=== PATIENT | male | born 1985 | race Caucasian/White ===

== ENCOUNTER 2021-10-27 09:36 | Emergency (ER) | payer SELFPAY ==
[2021-10-27] MEDS ORDERED: Lidocaine 1% 10 ML MDV INJECT ONE (09:51)
== END 2021-10-27 10:58 | disposition home or self-care (01) ==
LOC: JD.ED 09:36
DX: S01.81XA Laceration without foreign body of other part of head, initial encounter (principal); W21.07XA Struck by softball, initial encounter
CPT/HCPCS: 12013; 99282; 99283